=== PATIENT | male | born 1975 | race Two or more races ===

== ENCOUNTER → 2024-08-18 | Outpatient (CLI) | payer OTHER, SELFPAY ==
[2024-08-18 12:47] LABS: Absolute Lymphocyte Count 2.17 X10^3/uL (0.83-4.51); Absolute Neutrophil Count 3.9 X10^3/uL (2.0-7.7); Basophil# 0.05 X10^3/uL; Basophil% 0.7 % (0-1); Eosinophil# 0.13 X10^3/uL; Eosinophils% 1.8 % (0-5); Hematocrit 46.9 % (40-54); Hemoglobin 15.7 g/dL (13.0-16.5); Lymphocyte # 2.17 X10^3/ul (0.83-4.51); Lymphocyte % 30.8 % (19-41); Mean Corp Hgb Conc 33.5 g/dL (32-36); Mean Corpuscular Hgb 29.7 pg (27.0-32.0); Mean Corpuscular Volume 88.7 fL (80-94); Mean Platelet Vol. 9.8 fl (6.2-12.0); Monocyte# 0.78 X10^3/uL; Monocyte% 11.1 % (0-10); NRBC Flagged by Analyzer 0 % (0-5); Neutrophil # 3.89 X10^3/uL (2.7-7.7); Neutrophil % 55.2 % (47-70); Platelet Count 304 K/mm3 (150-450); RBC Distribution Width CV 12.7 % (11.6-14.6); RBC Distribution Width SD 41.2 fl (35.1-43.9); Red Blood Count 5.29 M/mm3 (4.6-6.2); White Blood Count 7.1 K/mm3 (4.4-11.0)
[2024-08-18 13:28] LABS: ALB/GLOB Ratio 1.3 RATIO (0.9-2.4); AST(SGOT) 29 U/L (<=37); Alanine Aminotransfer ALT/SGPT 47 U/L (<=46); Albumin, Serum 4.5 g/dL (3.5-5.0); Alkaline Phosphatase 115 U/L (40-129); Anion Gap 13 (5-15); BUN 17 mg/dL (4-19); BUN/Creat Ratio 16.1 RATIO (10-20); Calcium,Total 9.8 mg/dL (7.6-11.0); Chloride 105 mmol/L (98-108); Cholesterol 163 mg/dL (<=200); Creatinine, Serum 1.04 mg/dL (0.70-1.20); EST Glomerular Filtration Rate 89 (>60); Globulin 3.5 g/dL (2.2-4.2); Glucose 89 mg/dL (70-99); High Density Lipoprotein 37 mg/dL; Low Density Lipoprotein Calc. 97 mg/dL; Potassium 4.1 mmol/L (3.3-5.1); Sodium Level 141 mmol/L (133-145); Total Bilirubin 0.48 mg/dL (0.00-1.30); Triglycerides 147 mg/dL; Very Low Density Lipoprotein 29 mg/dL (5-40); Vitamin B12 527 pg/mL (180-914); Vitamin D,25 Hydroxy 41.6 ng/mL (30-100); cholesterol:hdl ratio screen 4.39
[2024-08-18 13:45] LABS: Hemoglobin A1c 6.1 % (<=5.6)
== END | disposition home or self-care (01) ==
LOC: VSLAB 12:13
DX: Z13.6 Encounter for screening for cardiovascular disorders (principal); Z13.220 Encounter for screening for lipoid disorders; Z13.1 Encounter for screening for diabetes mellitus; E56.9 Vitamin deficiency, unspecified
CPT/HCPCS: 36415; 80053; 80061; 82306; 82607; 83036; 84443; 85025

== ENCOUNTER → 2024-11-17 | Outpatient (CLI) | payer OTHER, SELFPAY ==
--- OUTSIDE RECORDS SUMMARY | 2024-11-17 19:14 | XMS RPT_ITS | CCD ---
Author Organization [facility] Care Team Providers Care Federal Aid Coordinator Name Role Phone Unavailable Primary Care Provider UnavailSOTO Triana Attending Unavailable Beam CIRCULATION TENDER-C, Julianobuashvin Primary Care Provider [phone] Beam CIRCULATION TENDER-C, Mikel Attending Provider [phone] Beam, Zebulun Attending Unavailable Beam, Zebulun Primary Care Unavailable Beam, Zebulun Attending Unavailable Beam, Zebulun Referring Unavailable Beam, Zebulun Primary Care Unavailable Medications Current Medications Medication Drug Class(es) Dates Sig (Normalized) Sig (Original) acetaminophen 325 mg / HYDROcodone bitartrate 10 mg oral tablet (1 source) Opioid Agonist take 1 tablet by mouth four times daily as needed hydroCODone-acet aminophen 10-325 MG tablet Take 1 tablet 4 times a day by oral route as needed for 7 days. Active diazePAM 5 mg oral tablet (1 source) Benzodiazepine take 1 tablet by mouth every hour Diazepam 5 MG tablet TAKE 1 TABLET (5 MG) BY ORAL ROUTE 1 HOUR PRIOR TO MRI, MAY REPEAT 15 MINUTES PRIOR Active ibuprofen 600 mg oral tablet (2 sources) Nonsteroidal Anti-inflammatory Drug Start: 10-30-2023 take 1 tablet by mouth every six hours as needed Ibuprofen 600 MG tablet Take 1 tablet by mouth every 6 hours as needed. 20 tablet 10/30/2023 Active Start: 10-30-2023 End: 10-30-2023 take 1 dose by mouth once at mealtime 600 mg, Oral, ONCE, 1 dose, On 10/30/23 at 0700, Give with food tiZANidine 4 mg oral tablet (1 source) Central alpha-2 Adrenergic Agonist take 1 tablet by mouth three times daily as needed tiZANidine 4 MG tablet Take 1 tablet 3 times a day by oral route as needed for 30 days. Active Completed/Discontinued Medications Medication Drug Class(es) Dates Sig (Normalized) Sig (Original) meloxicam 15 mg oral tablet (1 source) Nonsteroidal Anti-inflammatory Drug End: 10-30-2023 take 1 tablet by mouth once daily at mealtime Meloxicam 15 MG tablet Take 1 tablet every day by oral route with meals for 30 days. 10/30/2023 Discontinued (Therapy completed) Problems Problem Classification Problem Date Documented Date Episodic/Chronic Essential hypertension (1 source) Essential (primary) hypertension; Translations: [Essential (primary) hypertension] Onset: 09-22-2024 Chronic Other connective tissue disease (1 source) Pain of left hand; Translations: [Pain in left hand] 10-30-2023 Episodic Other connective tissue disease (2 sources) Pain in left hand; Translations: [Pain in left hand] Onset: 10-30-2023 Episodic Other screening for suspected conditions (not mental disorders or infectious disease) (1 source) Encounter for screening for cardiovascular disorders; Translations: [Encounter for screening for cardiovascular disorders] Onset: 09-25-2024 Episodic Unclassified (1 source) No additional problems on file Results Test Name Value Interpretation Reference Range Facility Absolute neutrophil countOrd ered By: Mikel Marks on 08-18-2024 Neutrophils (Bld) [#/Vol] 3.9 10*3/uL 2.0-7.7 [facility] Anion gap in Serum or Plasma Ordered By: Mikel Marks on 08-18-2024 Anion gap [Moles/Vol] 13 mmol/L 5-15 [facility] BUN/creatinine ratioOrdered By: Mikel Marks on 08-18-2024 Urea nitrogen/Creatinine [Mass ratio] 16.1 mg/mg 10-20 [facility] Basophil percentageOrdered B y: Mikel Marks on 08-18-2024 Basophils/100 WBC (Bld) 0.7 % 0-1 [facility] Bilirubin, totalOrdered By: Mikel Marks on 08-18-2024 Bilirubin [Mass/Vol] 0.48 mg/dL 0.00-1.30 [facility] CBC W/Diff, Automatedon Absolute Lymph 2.17 X10 3/uL Normal 0.83-4.51 [facility] Comment on above: Performed By: #### L 503.0106, L500.4050, L100.0100, L501.9520, L500.4100, L501.9985, L506.1001 #### [facility] [address] [place], [address] Absolute Neut 3.9 X10 3/uL Normal 2.0-7.7 [facility] Comment on above: Performed By: #### L 503.0106, L500.4050, L100.0100, L501.9520, L500.4100, L501.9985, L506.1001 #### [facility] [address] [place], [address] Basophils/100 WBC (Bld) 0.7 % Normal 0-1 [facility] Comment on above: Performed By: #### L 503.0106, L500.4050, L100.0100, L501.9520, L500.4100, L501.9985, L506.1001 #### [facility] [address] [place], [address] Eosinophils/100 WBC (Bld) 1.8 % Normal 0-5 [facility] Comment on above: Performed By: #### L 503.0106, L500.4050, L100.0100, L501.9520, L500.4100, L501.9985, L506.1001 #### [facility] [address] [place], [address] Erythrocyte distribution width (RBC) [Ratio] 12.7 % Normal 11.6-14.6 [facility] Comment on above: Performed By: #### L 503.0106, L500.4050, L100.0100, L501.9520, L500.4100, L501.9985, L506.1001 #### [facility] [address] [place], [address] Hematocrit (Bld) [Volume fraction] 46.9 % Normal 40-54 [facility] Comment on above: Performed By: #### L 503.0106, L500.4050, L100.0100, L501.9520, L500.4100, L501.9985, L506.1001 #### [facility] [address] [place], [address] Hemoglobin (Bld) [Mass/Vol] 15.7 g/dL Normal 13.0-16.5 [facility] Comment on above: Performed By: #### L 503.0106, L500.4050, L100.0100, L501.9520, L500.4100, L501.9985, L506.1001 #### [facility] [address] [facility] [place], [address] IG% 0.400 Normal 0.0-0.9 [facility] Comment on above: Result Comment: IG% - Immature Granulocytes (promyelocytes, myelocytes and metamyelocytes) > 1% indicates that a LEFT SHIFT is Present. Performed By: #### L 503.0106, L500.4050, L100.0100, L501.9520, L500.4100, L501.9985, L506.1001 #### [facility] [address] [place], [address] Lymphocytes/100 WBC (Bld) 30.8 % Normal 19-41 [facility] Comment on above: Performed By: #### L 503.0106, L500.4050, L100.0100, L501.9520, L500.4100, L501.9985, L506.1001 #### [facility] [address] [place], [address] MCH (RBC) [Entitic mass] 29.7 pg Normal 27.0-32.0 [facility] Comment on above: Performed By: #### L 503.0106, L500.4050, L100.0100, L501.9520, L500.4100, L501.9985, L506.1001 #### [facility] [address] [place], [address] MCHC (RBC) [Mass/Vol] 33.5 g/dL Normal 32-36 [facility] Comment on above: Performed By: #### L 503.0106, L500.4050, L100.0100, L501.9520, L500.4100, L501.9985, L506.1001 #### [facility] [address] [place], [address] MCV (RBC) [Entitic vol] 88.7 fL Normal 80-94 [facility] Comment on above: Performed By: #### L 503.0106, L500.4050, L100.0100, L501.9520, L500.4100, L501.9985, L506.1001 #### [facility] [address] [place], [address] Monocytes/100 WBC (Bld) 11.1 % High 0-10 [facility] Comment on above: Performed By: #### L 503.0106, L500.4050, L100.0100, L501.9520, L500.4100, L501.9985, L506.1001 #### [facility] [address] [place], [address] Neutrophils/100 WBC (Bld) 55.2 % Normal 47-70 [facility] Comment on above: Performed By: #### L 503.0106, L500.4050, L100.0100, L501.9520, L500.4100, L501.9985, L506.1001 #### [facility] [address] [place], [address] Nucleated RBC (Bld) [#/Vol] 0 10*3/uL Normal 0-5 [facility] Comment on above: Performed By: #### L 503.0106, L500.4050, L100.0100, L501.9520, L500.4100, L501.9985, L506.1001 #### [facility] [address] [place], [address] Platelet mean volume (Bld) [Entitic vol] 9.8 fL Normal 6.2-12.0 [facility] Comment on above: Performed By: #### L 503.0106, L500.4050, L100.0100, L501.9520, L500.4100, L501.9985, L506.1001 #### [facility] [address] [place], [address] Platelets (Bld) [#/Vol] 304 10*3/uL Normal 150-450 [facility] Comment on above: Performed By: #### L 503.0106, L500.4050, L100.0100, L501.9520, L500.4100, L501.9985, L506.1001 #### [facility] [address] [place], [address] RBC (Bld) [#/Vol] 5.29 10*6/uL Normal 4.6-6.2 [facility] Comment on above: Performed By: #### L 503.0106, L500.4050, L100.0100, L501.9520, L500.4100, L501.9985, L506.1001 #### [facility] [address] [place], [address] RDW SD 41.2 fl Normal 35.1-43.9 [facility] Comment on above: Performed By: #### L 503.0106, L500.4050, L100.0100, L501.9520, L500.4100, L501.9985, L506.1001 #### [facility] [address] [place], [address] WBC (Bld) [#/Vol] 7.1 10*3/uL Normal 4.4-11.0 [facility] Comment on above: Performed By: #### L 503.0106, L500.4050, L100.0100, L501.9520, L500.4100, L501.9985, L506.1001 #### [facility] [address] [place], [address] Calculated very low density lipoprotein (VLDL) cholesterol measurementOrdered By: Cristopherlun Beam on 08-18-2024 VLDL Cholesterol 29 mg/dL 5-40 [facility] Carbon dioxide, total [Moles /volume] in Central venous bloodOrdered By: Zebulun Beam on 08-18-2024 CO2 [Moles/Vol] 23.0 mmol/L 21.0-32.0 [facility] Chloride assayOrdered By: Juliano eatonun Beam on 08-18-2024 Chloride [Moles/Vol] 105 mmol/L 98-108 [facility] Comprehensive Metabolic Prof ilon 08-18-2024 Albumin [Mass/Vol] 4.5 g/dL Normal 3.5-5.0 [facility] Comment on above: Performed By: #### L 503.0106, L500.4050, L100.0100, L501.9520, L500.4100, L501.9985, L506.1001 #### [facility] [address] [place], [address] Albumin/Globulin [Mass ratio] 1.3 {ratio} Normal 0.9-2.4 [facility] Comment on above: Performed By: #### L 503.0106, L500.4050, L100.0100, L501.9520, L500.4100, L501.9985, L506.1001 #### [facility] [address] [place], [address] ALK PHOS 115 U/L Normal 40-129 [facility] Comment on above: Performed By: #### L 503.0106, L500.4050, L100.0100, L501.9520, L500.4100, L501.9985, L506.1001 #### [facility] [address] [place], [address] ALT [Catalytic activity/Vol] 47 U/L Normal <=46 [facility] Comment on above: Performed By: #### L 503.0106, L500.4050, L100.0100, L501.9520, L500.4100, L501.9985, L506.1001 #### [facility] [address] [place], [address] AST [Catalytic activity/Vol] 29 U/L Normal <=37 [facility] Comment on above: Performed By: #### L 503.0106, L500.4050, L100.0100, L501.9520, L500.4100, L501.9985, L506.1001 #### [facility] [address] [place], [address] Bilirubin [Mass/Vol] 0.48 mg/dL Normal 0.00-1.30 [facility] Comment on above: Performed By: #### L 503.0106, L500.4050, L100.0100, L501.9520, L500.4100, L501.9985, L506.1001 #### [facility] [address] [place], [address] BUN/CRE 16.1 RATIO Normal 10-20 [facility] Comment on above: Performed By: #### L 503.0106, L500.4050, L100.0100, L501.9520, L500.4100, L501.9985, L506.1001 #### [facility] [address] [place], [address] Calcium [Mass/Vol] 9.8 mg/dL Normal 7.6-11.0 [facility] Comment on above: Performed By: #### L 503.0106, L500.4050, L100.0100, L501.9520, L500.4100, L501.9985, L506.1001 #### [facility] [address] [place], [address] Chloride [Moles/Vol] 105 mmol/L Normal 98-108 [facility] Comment on above: Performed By: #### L 503.0106, L500.4050, L100.0100, L501.9520, L500.4100, L501.9985, L506.1001 #### [facility] [address] [place], [address] CO2 [Moles/Vol] 23.0 mmol/L Normal 21.0-32.0 [facility] Comment on above: Performed By: #### L 503.0106, L500.4050, L100.0100, L501.9520, L500.4100, L501.9985, L506.1001 #### [facility] [address] [place], [address] Creatinine [Mass/Vol] 1.04 mg/dL Normal 0.70-1.20 [facility] Comment on above: Performed By: #### L 503.0106, L500.4050, L100.0100, L501.9520, L500.4100, L501.9985, L506.1001 #### [facility] [address] [place], [address] GAP 13 Normal 5-15 [facility] Comment on above: Performed By: #### L 503.0106, L500.4050, L100.0100, L501.9520, L500.4100, L501.9985, L506.1001 #### [facility] [address] [place], [address] GFR/1.73 sq M.predicted among non-blacks MDRD (S/P/Bld) [Vol rate/Area] 89 mL/min/{1.73_m2} Normal >60 [facility] Comment on above: Result Comment: mL/m in/1.73m2 CKD-EPI Creatinine Equation (2020) Performed By: #### L 503.0106, L500.4050, L100.0100, L501.9520, L500.4100, L501.9985, L506.1001 #### [facility] [address] [place], [address] Globulin (S) [Mass/Vol] 3.5 g/dL Normal 2.2-4.2 [facility] Comment on above: Performed By: #### L 503.0106, L500.4050, L100.0100, L501.9520, L500.4100, L501.9985, L506.1001 #### [facility] [address] [place], [address] Glucose [Mass/Vol] 89 mg/dL Normal 70-99 [facility] Comment on above: Performed By: #### L 503.0106, L500.4050, L100.0100, L501.9520, L500.4100, L501.9985, L506.1001 #### [facility] [address] [place], [address] Potassium [Moles/Vol] 4.1 mmol/L Normal 3.3-5.1 [facility] Comment on above: Performed By: #### L 503.0106, L500.4050, L100.0100, L501.9520, L500.4100, L501.9985, L506.1001 #### [facility] [address] [place], [address] Sodium [Moles/Vol] 141 mmol/L Normal 133-145 [facility] Comment on above: Performed By: #### L 503.0106, L500.4050, L100.0100, L501.9520, L500.4100, L501.9985, L506.1001 #### [facility] [address] [place], [address] T PROT 8.0 g/dL Normal 5.9-8.4 [facility] Comment on above: Performed By: #### L 503.0106, L500.4050, L100.0100, L501.9520, L500.4100, L501.9985, L506.1001 #### [facility] [address] [place], [address] Urea nitrogen [Mass/Vol] 17 mg/dL Normal 4-19 [facility] Comment on above: Performed By: #### L 503.0106, L500.4050, L100.0100, L501.9520, L500.4100, L501.9985, L506.1001 #### [facility] [address] [place], [place], [id number] (153) Eosinophil percentageOrdered By: Zebulun Beam on 08-18-2024 Eosinophils/100 WBC (Bld) 1.8 % 0-5 [facility] Erythrocyte distribution wid th ratioOrdered By: Zebulun Beam on 08-18-2024 Erythrocyte distribution width (RBC) [Ratio] 12.7 % 11.6-14.6 [facility] Erythrocyte distribution wid th standard deviationOrdered By: Zebulun Beam on 08-18-2024 Erythrocyte distribution width (RBC) [Entitic vol] 41.2 fL 35.1-43.9 [facility] GFR/1.73 sq M.predicted gabe g non-blacks MDRD (S/P/Bld) [Vol rate/Area]Ordered By: Zebulun Beam on 08-18-2024 Estimated GFR (MDRD) Non-Af Amer 89 >60 [facility] Comment on above: mL/min/1.73m2 CKD-EP I Creatinine Equation (2020) Hematocrit Auto (Bld) [Volum e fraction]Ordered By: Mikel Marks on 08-18-2024 Hematocrit (Bld) [Volume fraction] 46.9 % 40-54 [facility] Hemoglobin A1con 08-18-2024 HbA1c (Bld) [Mass fraction] 6.1 % Normal <=5.6 [facility] Comment on above: Performed By: #### L 503.0106, L500.4050, L100.0100, L501.9520, L500.4100, L501.9985, L506.1001 #### [facility] [address] [place], [place], [id number] Hemoglobin A1c percentageOrd ered By: Mikel Marks on 08-18-2024 HbA1c (Bld) [Mass fraction] 6.1 % >5.7 [facility] Hemoglobin measurementOrdere d By: Mikel Marks on 08-18-2024 Hemoglobin (Bld) [Mass/Vol] 15.7 g/dL 13.0-16.5 [facility] Immature granulocytes/100 WB C Auto (Bld)Ordered By: Mikel Marks on 08-18-2024 Immature granulocytes/100 WBC (Bld) 0.400 % 0.0-0.9 [facility] Comment on above: IG% - Immature Granu locytes (promyelocytes, myelocytes and metamyelocytes) > 1% indicates that a LEFT SHIFT is Present. L503.0106on 08-18-2024 Cobalamin (Vitamin B12) [Mass/Vol] 527 pg/mL Normal 180-914 [facility] Comment on above: Performed By: #### L 503.0106, L500.4050, L100.0100, L501.9520, L500.4100, L501.9985, L506.1001 #### [facility] [address] [place], [address] L506.1001on 08-18-2024 Vitamin D 25-OH 41.6 ng/mL Normal 30-100 [facility] Comment on above: Result Comment: Davina min D Status Deficiency: <20 ng/mL (50nmol/L) Insufficiency: 20-30 ng/mL (50-75 nmol/L) Sufficiency: 30-100 ng/mL (75-250 nmol/L) Toxicity: >100 ng/mL (>250 nmol/L) Performed By: #### L 503.0106, L500.4050, L100.0100, L501.9520, L500.4100, L501.9985, L506.1001 #### [facility] [address] [place], [address] LDL calc ser/plasOrdered By: Mikel Marks on 08-18-2024 LDL Cholesterol, Calculated 97 mg/dL [facility] Comment on above: Ttjxowndhg=791-853 m g/dL & Higher Fhux=675 mg/dL or greater Laboratory - Chemistry and C hemistry - challengeOrdered By: Mikel Marks on 08-18-2024 AST [Catalytic activity/Vol] 29 U/L <38 [facility] Lipid Profileon 08-18-2024 CHOL:HDL 4.39 Normal [facility] Comment on above: Performed By: #### L 503.0106, L500.4050, L100.0100, L501.9520, L500.4100, L501.9985, L506.1001 #### [facility] [address] [place], [place], [address] Cholesterol [Mass/Vol] 163 mg/dL Normal <=200 [facility] Comment on above: Result Comment: Chol esterol level, Desirable <200 mg/dL Borderline high cholesterol 200-239 mg/dL High cholesterol >=240 mg/dL Recommendations of the NCEP Adult Treatment Panel for the following risk-cutoff thresholds for the [place] population. Performed By: #### L 503.0106, L500.4050, L100.0100, L501.9520, L500.4100, L501.9985, L506.1001 #### [facility] [address] [place], [address] Cholesterol in HDL [Mass/Vol] 37 mg/dL Low [facility] Comment on above: Result Comment: Fanny onal Cholesterol Education Program (NCEP) guidelines: <40 mg/dL: Low HDL-cholesterol (major risk factor for CHD) >= 60 mg/dL: High HDL-cholesterol (negative risk factor for CHD) HDL-cholesterol is affected by a number of factors, e.g. smoking, exercise, hormones, sex and age. Performed By: #### L 503.0106, L500.4050, L100.0100, L501.9520, L500.4100, L501.9985, L506.1001 #### [facility] [address] [place], [address] Cholesterol in LDL [Mass/Vol] 97 mg/dL Normal [facility] Comment on above: Result Comment: Bord rsubvb=802-453 mg/dL Higher Bwaa=856 mg/dL or greater Performed By: #### L 503.0106, L500.4050, L100.0100, L501.9520, L500.4100, L501.9985, L506.1001 #### [facility] [address] [place], [address] Cholesterol in VLDL [Mass/Vol] 29 mg/dL Normal 5-40 [facility] Comment on above: Performed By: #### L 503.0106, L500.4050, L100.0100, L501.9520, L500.4100, L501.9985, L506.1001 #### [facility] [address] [place], [address] Triglyceride [Mass/Vol] 147 mg/dL Normal [facility] Comment on above: Result Comment: The drugs N-Acetylcysteine and Metamizole may falsely depress this assay. Normal range: <150 mg/dL Borderline High: 150-199 mg/dL High: 200-499 mg/dL Very High: >500 mg/dL Performed By: #### L 503.0106, L500.4050, L100.0100, L501.9520, L500.4100, L501.9985, L506.1001 #### [facility] [address] [place], [address] Lymphocytes Auto (Unsp spec) [#/Vol]Ordered By: Zebulun Beam on 08-18-2024 Lymphocytes (Bld) [#/Vol] 2.17 10*3/uL 0.83-4.5 1 [facility] Lymphocytes/100 WBC Auto (Un sp spec)Ordered By: Zebulun Beam on 08-18-2024 Lymphocytes/100 WBC (Bld) 30.8 % 19-41 [facility] MCV (mean corpuscular volume ) determinationOrdered By: Zebulun Beam on 08-18-2024 MCV (RBC) [Entitic vol] 88.7 fL 80-94 [facility] Mean corpuscular hemoglobin (MCH) determinationOrdered By: Zebulun Beam on 08-18-2024 MCH (RBC) [Entitic mass] 29.7 pg 27.0-32.0 [facility] Mean corpuscular hemoglobin concentration (MCHC) determinationOrdered By: Zebulun Beam on 08-18-2024 MCHC (RBC) [Mass/Vol] 33.5 g/dL 32-36 [facility] Mean platelet volume determi nationOrdered By: Zebulun Beam on 08-18-2024 Platelet mean volume (Bld) [Entitic vol] 9.8 fL 6.2-12.0 [facility] Monocyte percentageOrdered B y: Zebulun Beam on 08-18-2024 Monocytes/100 WBC (Bld) 11.1 % High 0-10 [facility] Neutrophil percentageOrdered By: Zebulun Beam on 08-18-2024 Neutrophils/100 WBC (Bld) 55.2 % 47-70 [facility] Nucleated red blood cell per centageOrdered By: Zebulun Beam on 08-18-2024 Nucleated RBC/100 WBC (Bld) [Ratio] 0 % 0-5 [facility] Platelet countOrdered By: Juliano eatonun Beam on 08-18-2024 Platelets (Bld) [#/Vol] 304 10*3/uL 150-450 [facility] Potassium (Unsp spec) [Mass/ Vol]Ordered By: Mikel Marks on 08-18-2024 Potassium [Moles/Vol] 4.1 mmol/L 3.3-5.1 [facility] RBC Auto (Bld) [#/Vol]Ordere d By: Mikel Marks on 08-18-2024 RBC (Bld) [#/Vol] 5.29 10*6/uL 4.6-6.2 [facility] Screening total cholesterol/ high density lipoprotein (HDL) cholesterol ratioOrdered By: Mikel Marks on 08-18-2024 Cholesterol.total/Cholest sabina in HDL [Mass ratio] 4.39 {ratio} [facility] [facility] Serum creatinine measurement (mass/volume)Ordered By: Mikel Marks on 08-18-2024 Creatinine [Mass/Vol] 1.04 mg/dL 0.70-1.20 [facility] Serum globulin measurementOr dered By: Mikel Marks on 08-18-2024 Globulin (S) [Mass/Vol] 3.5 g/dL 2.2-4.2 [facility] Serum glucose measurement (m ass/volume)Ordered By: Mikel Marks on 08-18-2024 Glucose [Mass/Vol] 89 mg/dL 70-99 [facility] Serum or plasma alanine maldonado otransferase (ALT) measurementOrdered By: Mikel Marks on 08-18-2024 ALT [Catalytic activity/Vol] 47 U/L <47 [facility] Serum or plasma albumin do urement (mass/volume)Ordered By: Mikel Marks on 08-18-2024 Albumin [Mass/Vol] 4.5 g/dL 3.5-5.0 [facility] Serum or plasma albumin/glob ulin mass ratioOrdered By: Mikel Marks on 08-18-2024 Albumin/Globulin [Mass ratio] 1.3 {ratio} 0.9-2.4 [facility] Serum or plasma alkaline kashif sphatase measurementOrdered By: Mikel Marks on 08-18-2024 ALP [Catalytic activity/Vol] 115 U/L 40-129 [facility] Serum or plasma calcium do urement (mass/volume)Ordered By: Mikel Marks on 08-18-2024 Calcium [Mass/Vol] 9.8 mg/dL 7.6-11.0 [facility] Serum or plasma cholesterol in HDL measurement (mass/volume)Ordered By: Mikel Marks on 08-18-2024 Cholesterol in HDL [Mass/Vol] 37 mg/dL Low >40 [facility] Comment on above: National Cholesterol Education Program (NCEP) guidelines:<40 mg/dL: Low HDL-cholesterol (major risk factor for CHD)>= 60 mg/dL: High HDL-cholesterol (negative risk factor for CHD)HDL-cholesterol is affected by a number of factors, e.g. smoking, exercise, hormones, sex and age. Serum or plasma cholesterol measurement (mass/volume)Ordered By: Mikel Marks on 08-18-2024 Cholesterol [Mass/Vol] 163 mg/dL <201 [facility] Comment on above: Cholesterol level, D esirable <200 mg/dLBorderline high cholesterol 200-239 mg/dLHigh cholesterol >=240 mg/dLRecommendations of the NCEP Adult Treatment Panel for the following risk-cutoff thresholds for the [place] population. Serum or plasma urea nitroge n measurement (mass/volume)Ordered By: Mikel Marks on 08-18-2024 Urea nitrogen [Mass/Vol] 17 mg/dL 4-19 [facility] Sodium levelOrdered By: Cristopher Marks on 08-18-2024 Sodium [Moles/Vol] 141 mmol/L 133-145 [facility] TSH DL <= 0.005 mIU/L QnOrde red By: Mikel Marks on 08-18-2024 Thyroid Stimulating Hormone (TSH) 1.620 uIU/mL 0.300-4.200 [facility] Thyroid Stim Hormone (TSH)on 08-18-2024 TSH 1.620 uIU/mL Normal 0.300-4.200 [facility] Comment on above: Performed By: #### L 503.0106, L500.4050, L100.0100, L501.9520, L500.4100, L501.9985, L506.1001 #### [facility] [place], [address] Total proteinOrdered By: Gino Marks on 08-18-2024 Protein [Mass/Vol] 8.0 g/dL 5.9-8.4 [facility] Triglycerides measurementOrd ered By: Mikel Marks on 08-18-2024 Triglyceride [Mass/Vol] 147 mg/dL <199 [facility] Comment on above: The drugs N-Acetylcy steine and Metamizole may falsely depress this assay. Normal range: <150 mg/dLBorderline High: 150-199 mg/dLHigh: 200-499 mg/dLVery High: >500 mg/dL Vitamin B12 ser/plasOrdered By: Mikel Marks on 08-18-2024 Cobalamin (Vitamin B12) [Mass/Vol] 527 pg/mL 180-914 [facility] Vitamin D, 25-hydroxyOrdered By: Mikel Marks on 08-18-2024 Vitamin D 25-Hydroxy 41.6 ng/mL 30-100 [facility] Comment on above: Vitamin D StatusDefi ciency: <20 ng/mL (50nmol/L)Insufficiency: 20-30 ng/mL (50-75 nmol/L)Sufficiency: 30-100 ng/mL (75-250 nmol/L)Toxicity: >100 ng/mL (>250 nmol/L) White blood cell (WBC) count Ordered By: Mikel Marks on 08-18-2024 WBC (Bld) [#/Vol] 7.1 10*3/uL 4.4-11.0 [facility] XR Hand - left 3 Viewson IMPRESSION: No acute fracture RADIOLOGY Ulices Burgess MD - 10/30/2023 PROCEDURE: XR HAND LEFT 3+ VIEWS COMPARISON: None. HISTORY: pain FINDINGS: BONES:Contour deformity head of the first metacarpal likely representing remote healed fracture. No definite acute fracture or dislocation SOFT TISSUES:Negative. No visible soft tissue swelling. EFFUSION:None visible. OTHER: Negative. IMPRESSION IMPRESSION: No acute fracture [facility] Rad[facility]ative[facility] 3 ViewsOrdere d By: Ulices Gerard on 10-30-2023 [employer] Work Phone: Vital Signs Date Time Vital Sign Value Performing Clinician Ashley malone 10-30-2023 07:27-0400 Diastolic blood pressure 88 mm[Hg] Soto Hidalgo MD Work Phone: [facility] 10-30-2023 07:27-0400 Heart rate 88 /min Soto Hidalgo MD Work Phone: [employer] 10-30-2023 07:27-0400 Respiratory rate 16 /min Soto Hidalgo MD Work Phone: [employer] 10-30-2023 07:27-0400 SaO2% (BldA) [Mass fraction] 98 % Soto Hidalgo MD Work Phone: [employer] 10-30-2023 07:27-0400 Systolic blood pressure 178 mm[Hg] Soto Hidalgo MD Work Phone: [employer] 10-30-2023 06:20-0400 Body temperature 97.2 [degF] Soto Hidalgo MD Work Phone: ON24 [facility] [employer] Encounters Encounter Date Encounter Type Care Provider Facility Start: 09-26-2024 ambulatory Zebulun Beam Facility:[facility] Start: 08-18-2024 End: 08-18-2024 ambulatory Zebulun Beam [employer]ATION [employer]ER[employer]C Work Phone: [facility] Work Phone: Start: 08-18-2024 End: 08-18-2024 Patient encounter procedure Zebulun Beam CIRCULATION TENDER-C -Abdelrahman, Zakiya Truong Start: 08-18-2024 End: 08-18-2024 ambulatory Zebulun Beam Facility:[facility] Start: 10-30-2023 End: 10-30-2023 Emergency department patient visit SOTO HIDALGO [facility] Start: 10-30-2023 End: 10-30-2023 Emergency department patient visit Soto Hidalgo MD Work Phone: [facility] Emergency Department Procedures Date Procedure Procedure Detail Performing Clinician Start: 10-30-2023 Radex hand minimum 3 views Soto Hidalgo MD Work Phone: Plan of Treatment Date Care Activity Detail Author Start: 02-13-2024 Influenza vaccination INFLUENZ A VACCINE (Season Ended) [facility] Start: 02-12-2023 COVID-19 VACCINE ( season) COVID-19 VACCINE ( season) [facility] Start: 2022 Screening for malign ant neoplasm of colon COLORECTAL CANCER SCREENING DISCUSSION [facility] Start: 2017 Lipid panel LIPID SCREENING [facility] Start: 1996 Hepatitis B vaccination HEP B VACCINE (1 of 3 - 19+ 3-dose series) [facility] Start: 1996 Third diphtheria, te tanus and acellular pertussis (DTaP) vaccination TDAP (ADULT) [facility] Start: 1992 HIV screening HIV SCREENING DISCUSSION [facility] Start: 1977 Hepatitis C screening HEPATITI S C VIRUS SCREENING [facility] Start: 1977 Tetanus vaccination TETANUS [facility] Payers Date Payer Category Payer Private Health Insurance [id number] 2024 Self-pay Unknown [id number] Unknown [id number] Social History Date Type Detail Facility [facility]: [facility] Start: 10-30-2023 Tobacco use and exposure Smokeless tobacco non-user [facility] Start: 10-30-2023 Alcoholic beverage intake Ex-drinker (finding) [facility] Start: 10-30-2023 History of Social function [facility] Start: 10-30-[address] [facility] Start: 1975 Sex assigned at Not on file [facility] Tobacco smoking stat [facility] Unknown if ever smoked [facility] Work Phone: Start: 08-30-2024 Sex Male (finding) [facility] Start: 1975 Sex Assigned At Male [facility] Clinical Notes 10-30-2023 Hans Rojas RN - 10/30/2023 7:28 AM EDTHans Rojas RN - 10/30/2023 7:28 AM Marty Mccabe RN - 10/30/2023 6:38 AM Marty Mccabe RN - 10/30/2023 6:30 AM EDT Note Date & Type Note Facility 10-30-2023 Note PROCEDURE: XR HAND L EFT 3+ VIEWS COMPARISON: None. HISTORY: pain FINDINGS: BONES:Contour deformity head of the first metacarpal likely representing remote healed fracture. No definite acute fracture or dislocation SOFT TISSUES:Negative. No visible soft tissue swelling. EFFUSION:None visible. OTHER: Negative. IMPRESSION: No acute fracture [facility]] 10-30-2023 Emergency department Note Discharge instructions discussed with patient, no questions at this time. Patient and belongings ambulated off of unit. [facility] 10-30-2023 Emergency department Note Discharge instructions discussed with patient, no questions at this time. Patient and belongings ambulated off of unit. Radiology at bedside Peanut butter crackers given to patient DEPARTMENT OF EMERGENCY MEDICINE CHIEF COMPLAINT Hand Pain (Pt states broke LEFT hand 5th digit in June, c/o increased hand pain with radiation into arm and into shoulder past 2-3 weeks. Pt c/o numbness and tingling. Pt reports no new injury/) HPI Ivett Aj is a 48 y.o. male who presents with left hand pain. Patient states he broke his finger back in June. It was his little finger. He never got it evaluated. Over the last few weeks, it is now radiating all the way up his arm and into his shoulder. No fevers or chills. No new trauma. REVIEW OF SYSTEMS Review of Systems See history of present illness. PAST MEDICAL HISTORY No past medical history on file. SURGICAL HISTORY No past surgical history on file. CURRENT MEDICATIONS Current Facility-Administered Medications Medication Dose Route Frequency Provider Last Rate Last Admin Ibuprofen (MOTRIN) tablet 600 mg 600 mg Oral Once Soto Hidalgo MD Current Outpatient Medications Medication Sig Dispense Refill Diazepam 5 MG tablet TAKE 1 TABLET (5 MG) BY ORAL ROUTE 1 HOUR PRIOR TO MRI, MAY REPEAT 15 MINUTES PRIOR hydroCODone-acetaminophen 10-325 MG tablet Take 1 tablet 4 times a day by oral route as needed for 7 days. Meloxicam 15 MG tablet Take 1 tablet every day by oral route with meals for 30 days. tiZANidine 4 MG tablet Take 1 tablet 3 times a day by oral route as needed for 30 days. ALLERGIES No Known Allergies FAMILY HISTORY History reviewed. No pertinent family history. SOCIAL HISTORY Social History Socioeconomic History Marital status: Spouse name: Not on file Number of children: Not on file Years of education: Not on file Highest education level: Not on file Occupational History Not on file Tobacco Use Smoking status: Never Smokeless tobacco: Never Vaping Use Vaping status: Never Used Substance and Sexual Activity Alcohol use: Not Currently Drug use: Yes Types: Marijuana Comment: daily Sexual activity: Not on file Other Topics Concern Not on file Social History Narrative Not on file Social Determinants of Health Financial Resource Strain: Not on file Food Insecurity: Not on file Transportation Needs: Not on file Physical Activity: Not on file Stress: Not on file Social Connections: Not on file Intimate Partner Violence: Not on file Housing Stability: Not on file PHYSICAL EXAM BP (!) 193/101 Pulse 82 Temp 97.2 F (36.2 C) Resp 16 SpO2 97% Smoking Status Never Physical Exam The patient is well-developed, well-nourished, and in no acute distress. Head is atraumatic and normocephalic. Pupils are equal and reactive. Face is symmetric. Mucous membranes are moist. Neck is supple. Heart is regular rate and rhythm. Lungs are clear to auscultation. Abdomen is soft, nontender, nondistended. Skin is warm and dry. Extremities are warm and well perfused and without acute deformity. Radial pulses are equal. Normal range of motion of the fingers, wrist, elbow, and shoulder. No swelling or skin changes. No palpable deformities. Neurologically, the patient is awake, alert, and without acute deficit. Psychiatrically, the patient is calm and cooperative. ED COURSE & MEDICAL DECISION MAKING X-rays unremarkable. Physical exam is benign. I suspect the patient's symptoms are related to repetitive motion. I will put him on ibuprofen. I will refer him to follow up with Dr. Diaz. Soto Hidalgo MD 10/30/23 0657 documented in this encounter [facility] 10-30-2023 Note PROCEDURE: XR HAND L EFT 3+ VIEWS COMPARISON: None. HISTORY: pain FINDINGS: BONES:Contour deformity head of the first metacarpal likely representing remote healed fracture. No definite acute fracture or dislocation SOFT TISSUES:Negative. No visible soft tissue swelling. EFFUSION:None visible. OTHER: Negative. RADIOLOGY 10-30-2023 Emergency department Note Radiology at bedside [facility] 10-30-2023 Emergency department Note Peanut butter crackers given to patient [facility] 10-30-2023 Physician Emergen cy department Note DEPARTMENT OF EMERGENCY MEDICINE CHIEF COMPLAINT Hand Pain (Pt states broke LEFT hand 5th digit in June, c/o increased hand pain with radiation into arm and into shoulder past 2-3 weeks. Pt c/o numbness and tingling. Pt reports no new injury/) HPI Ivett Aj is a 48 y.o. male who presents with left hand pain. Patient states he broke his finger back in June. It was his little finger. He never got it evaluated. Over the last few weeks, it is now radiating all the way up his arm and into his shoulder. No fevers or chills. No new trauma. REVIEW OF SYSTEMS Review of Systems See history of present illness. PAST MEDICAL HISTORY No past medical history on file. SURGICAL HISTORY No past surgical history on file. CURRENT MEDICATIONS Current Facility-Administered Medications Medication Dose Route Frequency Provider Last Rate Last Admin Ibuprofen (MOTRIN) tablet 600 mg 600 mg Oral Once Soto Hidalgo MD Current Outpatient Medications Medication Sig Dispense Refill Diazepam 5 MG tablet TAKE 1 TABLET (5 MG) BY ORAL ROUTE 1 HOUR PRIOR TO MRI, MAY REPEAT 15 MINUTES PRIOR hydroCODone-acetaminophen 10-325 MG tablet Take 1 tablet 4 times a day by oral route as needed for 7 days. Meloxicam 15 MG tablet Take 1 tablet every day by oral route with meals for 30 days. tiZANidine 4 MG tablet Take 1 tablet 3 times a day by oral route as needed for 30 days. ALLERGIES No Known Allergies FAMILY HISTORY History reviewed. No pertinent family history. SOCIAL HISTORY Social History Socioeconomic History Marital status: Spouse name: Not on file Number of children: Not on file Years of education: Not on file Highest education level: Not on file Occupational History Not on file Tobacco Use Smoking status: Never Smokeless tobacco: Never Vaping Use Vaping status: Never Used Substance and Sexual Activity Alcohol use: Not Currently Drug use: Yes Types: Marijuana Comment: daily Sexual activity: Not on file Other Topics Concern Not on file Social History Narrative Not on file Social Determinants of Health Financial Resource Strain: Not on file Food Insecurity: Not on file Transportation Needs: Not on file Physical Activity: Not on file Stress: Not on file Social Connections: Not on file Intimate Partner Violence: Not on file Housing Stability: Not on file PHYSICAL EXAM BP (!) 193/101 Pulse 82 Temp 97.2 F (36.2 C) Resp 16 SpO2 97% Smoking Status Never Physical Exam The patient is well-developed, well-nourished, and in no acute distress. Head is atraumatic and normocephalic. Pupils are equal and reactive. Face is symmetric. Mucous membranes are moist. Neck is supple. Heart is regular rate and rhythm. Lungs are clear to auscultation. Abdomen is soft, nontender, nondistended. Skin is warm and dry. Extremities are warm and well perfused and without acute deformity. Radial pulses are equal. Normal range of motion of the fingers, wrist, elbow, and shoulder. No swelling or skin changes. No palpable deformities. Neurologically, the patient is awake, alert, and without acute deficit. Psychiatrically, the patient is calm and cooperative. ED COURSE & MEDICAL DECISION MAKING X-rays unremarkable. Physical exam is benign. I suspect the patient's symptoms are related to repetitive motion. I will put him on ibuprofen. I will refer him to follow up with Dr. Diaz. Soto Hidalgo MD 10/30/[address] [facility] Evaluation note Diagnosis Pain of left hand- Primary Pain in limb [facility] noteNo assessment information availableWMain [facility] Work Phone: Hospital Discharge instructions* Attachments The following attachments cannot be sent through Care Everywhere. * Hand Pain (Belarusian) documented in this encounterSt[facility] HospitalReason for referral (narrative)* Consultation (Routine) - New Request Specialty Diagnoses / Procedures Referred By Contmaryuri t Referred To Contact Diagnoses Pain of left hand Soto Hidalgo MD [address] [place] [id number] Jaswant Diaz MD [address] [place] [phone] Referral ID Status Reason Start Date Expiration Date V isits Requested Visits Authorized [id number] New Request 10/30/2023 11/23/2024 1 [facility]No reason for referral information availableWMain Campus [facility] Work Phone: Summary Purpose Family History No Family History Records FoundNo Family History Records Found Advance Directives No Advanced Directives Records FoundNo Advanced Directives Records Found Additional Source Comments Reason for Visit (unrecogniz ed section and content) Reason Comments Hand Pain Pt states broke LEFT hand 5th digit in June, c/o increased hand pain with radiation into arm and into shoulder past 2-3 weeks. Pt c/o numbness and tingling. Pt reports no new injury Scheduled Active and Recently Administ ered Medications (unrecognized section and content) Medication Order 10/28/2023 10/29/2023 10/30/2023 Ibuprofen (MOTRIN) tablet 600 mg (COMPLETED) 600 mg, Oral, ONCE, 1 dose, On 10/30/23 at 0700, Give with food 0626 (Given - Provid er: Alysa Mccabe RN) (unrecognized sect ion and content) No Status Records FoundNo Status Records Found INFORMATION SOURCE (unrecogn ized section and content) DATE CREATED AUTHOR 11/05/2023 [facility] sp[facility] DATE CREATED AUTHOR AUTHOR'S ORGANIZ ATION 09/26/2024 [facility] Care Teams (unrecognized sec tion and content) Team Status: Active Member Role Status Dates Mikel Marks VSC, CIRCULATION TENDER-C Primary Care Provider Active Team Status: Inactive Member Role Status Dates Julianobuashvin Marks VSC, CIRCULATION TENDER-C Primary Care Provider Active Start: August 18, 2024 End: August 18, 2024 Julianobuashvin Beam VSC, CIRCULATION TENDER-C Attending Provider Active Start: August 18, 2024 End: August 18, 2024 Goals (unrecognized section and content) Goals may be documented in a n alternate section FOR RECORDS PERTAINING TO PATIENTS WHO ARE OR HAVE BEEN ENROLLED IN A CHEMICAL DEPENDENCY/SUBSTANCEABUSE PROGRAM, SOME INFORMATION MAY BE OMITTED. This clinical summary was aggregated from multiple sources. Caution should be exercised in using it in the provision of clinical care. This summary normalizes information from multiple sources, and as a consequence, information in this document may materially change the coding, format and clinical context of patient data. In addition, data may be omitted in some cases. CLINICAL DECISIONS SHOULD BE BASED ON THE PRIMARY CLINICAL RECORDS. [employer] provides no warranty or guarantee of the accuracy or completeness of information in this document.
== END | disposition home or self-care (01) ==
DX: G47.10 Hypersomnia, unspecified (principal)
CPT/HCPCS: 95806

== ENCOUNTER → 2025-02-07 | Outpatient (CLI) | payer OTHER, SELFPAY ==
[2025-02-07 16:02] LABS: Hematocrit 43.9 % (40-54); Hemoglobin 15.0 g/dL (13.0-16.5); Immature Granulocytes Count 0.030 X10^3/uL (0.0-0.0); Mean Corp Hgb Conc 34.2 g/dL (32-36); Mean Corpuscular Volume 87.8 fL (80-94); Mean Platelet Vol. 9.3 fl (6.2-12.0); NRBC Flagged by Analyzer 0 % (0-5); Platelet Count 341 K/mm3 (150-450); RBC Distribution Width CV 12.6 % (11.6-14.6); RBC Distribution Width SD 40.6 fl (35.1-43.9); Red Blood Count 5.00 M/mm3 (4.6-6.2); White Blood Count 8.5 K/mm3 (4.4-11.0)
[2025-02-07 16:19] LABS: AST(SGOT) 26 U/L (<=37); Alanine Aminotransfer ALT/SGPT 38 U/L (<=46); Albumin, Serum 4.7 g/dL (3.5-5.0); Alkaline Phosphatase 135 U/L (40-129); Anion Gap 10 (5-15); BUN 17 mg/dL (4-19); BUN/Creat Ratio 16.5 RATIO (10-20); Calcium,Total 9.5 mg/dL (7.6-11.0); Carbon Dioxide 25.9 mmol/L (21.0-32.0); Chloride 106 mmol/L (98-108); Globulin 3.5 g/dL (2.2-4.2); Glucose 104 mg/dL (70-99); Potassium 3.8 mmol/L (3.3-5.1)
== END | disposition home or self-care (01) ==
DX: R10.9 Unspecified abdominal pain (principal)
CPT/HCPCS: 36415; 80053; 85025